=== PATIENT | female | born 1990 | race Caucasian/White ===

== ENCOUNTER 2017-09-15 10:10 | Inpatient (IN) | payer OTHER ==
[~2017-09-15] VITALS: Ht 152.4 cm; Wt 94.5 kg
[~2017-09-15 10:10] MED LIST: CEPHALEXIN500 M1 PO; NO HOME MEDICATIONS; PRENATAL1 TA1 PO
[2017-09-23] VITALS (30 sets, daily range): BP systolic 90–140; BP diastolic 53–93; PULSE 67–90; TEMP 97.9–98.4
[2017-09-23] MEDS ORDERED: PRENATAL1 TA7 PO (07:42)
[2017-09-23 08:07] LABS: MEAN CELL VOLUME 84 fl (80.0-100.0); MEAN CORPUSCULAR HGB CONC 33 g/dl (33.0-37.0); MEAN PLATELET VOLUME 11.5 fl (7.4-10.4); PLATELET COUNT 170 K/mm3 (130-400); RED BLOOD COUNT 4.13 M/mm3 (4.10-5.30); REDCELL DISTRIBUTION WIDTH-CV 16.2 % (11.5-14.5)
[2017-09-23 08:09] LABS: HEMATOCRIT 34.5 % (37.0-47.0); HEMOGLOBIN 11.5 g/dl (12.5-16.0); MEAN CORPUSCULAR HEMOGLOBIN 28 pg (27.0-31.0)
[2017-09-23] MEDS ORDERED: PERCOCET 325 MG1 TA2 PO (08:10)
[2017-09-23] MEDS ORDERED: MOTRIN 800800 MG/TAB PO (08:10)
[2017-09-23 09:01] LABS: ANISOCYTOSIS 1+; BAND 3 % (0-10); LYMPHOCYTE 43 % (20.0-51.0); NEUTROPHILS 54 % (42.0-75.2); PLATELET ESTIMATE NORMAL (NORMAL)
[2017-09-24 00:50] VITALS: BP 95/50; PULSE 70; TEMP 97.7
[2017-09-24 04:15] VITALS: BP 92/50; PULSE 74; TEMP 97.8
[2017-09-24 08:15] VITALS: BP 114/64; PULSE 88; TEMP 98.6
== END 2017-09-24 14:20 | disposition home or self-care (01) | DRG 775 ==
LOC: LDR 09-23 07:01 → OB 09-23 07:01 → LDR 09-23 10:09 → OB 09-23 14:43 → LDR 09-23 17:48 → OB 09-24 14:20
PROVIDERS: Obstetrics & Gynecology
PROC: 10E0XZZ Delivery of Products of Conception, External Approach (ICD-10-PCS; principal; 2017-09-23)
DX: O99.02 Anemia complicating childbirth (principal); O87.8 Other venous complications in the puerperium; D64.9 Anemia, unspecified; Z3A.39 39 weeks gestation of pregnancy; Z37.0 Single live birth
CPT/HCPCS: J2590; J7120